=== PATIENT | female | born 1995 | race Caucasian/White ===

== ENCOUNTER 2022-04-28 06:39 | Emergency (ER) | payer BC, MEDICAID ==
[~2022-04-28] VITALS: Ht 170.2 cm; Wt 68.2 kg
[~2022-04-28 06:39] MED LIST: NITR100C6 PO
[2022-04-28 06:47] VITALS: BP 126/73
--- NOTE | 2022-04-28 07:20 | NUR ---
first contact with pt. presents with chest wall pain x [employer] and intermittent numbness and tingling to left fingers. equal notcher strength bilaterally. pt in no distress.
--- NOTE | 2022-04-28 07:35 | NUR ---
provider at bedside.
[2022-04-28] MEDS ORDERED: ketorolac trometh. 30mg/ml inj. IM ONE (07:45)
--- NOTE | 2022-04-28 08:35 | NUR ---
provider at bedside.
== END 2022-04-28 08:52 | disposition home or self-care (01) ==
LOC: ER 06:40
DX: R07.89 Other chest pain (principal); R00.2 Palpitations; Z72.89 Other problems related to lifestyle; Z88.0 Allergy status to penicillin; Z79.899 Other long term (current) drug therapy
CPT/HCPCS: 71046; 93005; 99283

== ENCOUNTER 2025-09-16 12:21 | Emergency (ER) | payer OTHER ==
[~2025-09-16] VITALS: Ht 167.6 cm; Wt 68.2 kg
[2025-09-16 12:32] VITALS: BP 142/89; PULSE 124; TEMP 98.5; O2SAT 98
--- NOTE | 2025-09-16 15:11 | Physician Documentation ---
History of Present Illness General Chief Complaint: See Chief Complaint Stated Complaint: POSS EXPOSURE AT WORK Time Seen by MD: 14:55 Primary Medical Doctor: none History of Present Illness Initial Comments 29 y/o female with known reactive airway disease presents to the emergency department for evaluation of post exposure of ethyl glycol. Exposure happened several weeks ago while at work and has a work injury that was closed. Patient continues to have cough without productive sputum. She seeks additional evaluation in the emergency department today without yadi shortness of breath. Medication Reconciliation Allergies: Coded Allergies: Penicillins (Verified Allergy, Unknown, 09/16/25) Scheduled Albuterol Sulfate (Ventolin Hfa), 2 PUFFS INH Q4HPRN Azithromycin (Zithromax), 1 TAB PO DAILY Methylprednisolone (Medrol Dosepak), 0 PO UD Nitrofurantoin Monohyd/M-Cryst (Macrobid 100 mg Capsule), 1 CAP PO Q12H Past Medical History Past Medical History: UTI Past Surgical History: no surgical history Alcohol Use: Occasionally Drug Use: none Lives with: Family Lives In: Assisted Care Occupation: employed Review of Systems All Other Systems at this time: Reviewed and Negative Constitutional: Denies: fever, chills RESP: Reports: short of breath, cough Physical Exam Physical Exam Vital Signs: RN Vital Signs have been reviewed: Yes, Temperature: 98.5, Source: Temporal, Heart Rate: 124, Respiratory Rate: 18, BP: 142/89, Pulse Oximetry: 98, Weight: 68.180 Oxygen Flow Rate: 0 General Appearance: alert, WD/WN, mild distress Head: normal inspection Face: normal inspection Pupils/EOM/Fundus: PERRLA Gag present: Yes Neck: trachea midline; No: meningeal signs Respiratory Decreased forced expiratory volume Cardiovascular: normal peripheral pulses Back: normal inspection, no CVA tenderness Extremities: normal range of motion Neurologic: oriented x4 Motor / Sensory: no motor deficit, no sensory deficit Psychiatric: normal mood/affect Skin: normal color, warm/dry; No: rash Progress Results/Orders Results/Orders Orders - DOUG FIELD PAC Chest,Single View (09/16/25 15:16) Completed Orders - DOUG FIELD PAC Chest,Single View (09/16/25 15:16) Vital Signs 09/16/25 09/16/25 12:32 15:25 Temp 98.5 Pulse 124 Resp 18 18 B/P (MAP) 142/89 Pulse Ox 98 O2 Flow Rate 0 Medical Decision Making Additional information obtaine: N/A Findings 29-year-old female with a known hearing reactive airway disease presents to the emergency department for evaluation. Chest x-ray imaging to evaluate for pneumonitis or other unforeseen pathologies. Plan: Begin corticosteroid therapy along with a beta two inhaler. Recommend primary care and/or work compensation follow up. Differential Diagnosis Working diagnosis pneumonitis secondary to chemical exposure with known history of reactive airway disease. No evidence of pneumonia on x-ray, pleural e ffusions tumor mass. Departure Disposition: HOME / SELF CARE / HOMELESS Impression: Primary Impression: Pneumonitis Condition: Stable Discharge Instructions: Pneumonitis Additional Instructions: Please begin medications as directed for suspected pneumonitis secondary to recent chemical respiratory irritant. Make follow up appointment with the primary care physician and/or worker's injury. Thank you for visiting emergency department of [facility] [place]. Referrals: NO PRIMARY CARE PROVIDER (PCP) Prescriptions Methylprednisolone (Medrol Dosepak) 4 Mg Tab.ds.pk 0 PO UD, #21 TAB 0 Refills take 6 Pills Day 1, 5 Pills Day 2, 4 Pills Day 3, 3 Pills Day 4, 2 Pills Day 5 and 1 pill Day 6 Prov: DOUG FIELD 09/16/25 Azithromycin (Zithromax) 250 Mg Tablet 1 TAB PO DAILY, #6 TAB azithromycin z pack as directed in packaging Prov: DOUG FIELD 09/16/25 Albuterol Sulfate (Ventolin Hfa) 90 Mcg Hfa.aer.ad 2 PUFFS INH Q4HPRN, #1 INHALER Prov: DOUG FIELD 09/16/25 Education Educated: Patient Educated regarding: diagnosis, treatment, prognosis, need for follow up Signature Scribe Signature: . Attestation: . DOUG FIELD Sep 16, 2025 15:11
[2025-09-16 15:25] VITALS: RESP 18
--- NOTE | 2025-09-16 15:28 | RADIOLOGY REPORT ---
CHEST RADIOGRAPH Indication: Chemical exposure Technique: Single frontal view of the chest was obtained COMPARISON: CHEST,TWO VIEWS on DOS: 04/28/22 FINDINGS: Lines and Tubes: None Lungs: Clear Pleura: No effusion. No pneumothorax. Cardiomediastinal contours: Unremarkable Bones: Unremarkable IMPRESSION: No acute disease.
[2025-09-16] MEDS ORDERED: ALBU18HF2 INH (15:46)
[2025-09-16] MEDS ORDERED: METH4TAB81 PO (15:46)
[2025-09-16] MEDS ORDERED: AZIT-164 PO (15:46)
== END 2025-09-16 16:01 | disposition home or self-care (01) ==
LOC: ER 12:21
DX: J18.9 Pneumonia, unspecified organism (principal); J45.909 Unspecified asthma, uncomplicated; Z88.0 Allergy status to penicillin
CPT/HCPCS: 71045; 99283